=== PATIENT | female | born 1990 | race Two or more races ===

== ENCOUNTER 2024-04-10 07:25 | Day surgery (SDC) | payer MEDICAID, SELFPAY ==
[2024-04-06 07:39] VITALS: BMI 24.2
[2024-04-06 09:38] LABS: Basophils % (Auto) 0 % (0-2.5); Eosinophils # (Auto) 0.1 Thou/mm3 (0.0-0.5); Eosinophils % (Auto) 2 % (0-10); Hemoglobin 13.2 g/dL (12.0-16.0); Immature Granulocytes % (Auto) 0 % (0-0); Immature Granulocytes Auto 0.02 Thou/mm3 (0.00-0.00); Lymphocytes # (Auto) 2.4 Thou/mm3 (1.0-4.8); Lymphocytes % (Auto) 35 % (10-50); Mean Corpuscular Hemoglobin 30.1 pg (25.0-35.0); Mean Corpuscular Volume 91 fL (80-100); Monocytes # (Auto) 0.3 Thou/mm3 (0.0-0.8); Monocytes % (Auto) 5 % (0-12); Neutrophils # (Auto) 3.9 Thou/mm3 (1.8-7.7); Neutrophils % (Auto) 58 % (37-80); Nucleated Red Blood Cell % 0 /100 WBC (0); Platelet Count 252 Thou/mm3 (140-440); RDW Standard Deviation 41.2 fL (36.4-46.3); Red Blood Count 4.39 Miln/mm3 (4.00-5.20); White Blood Count 6.8 Thou/mm3 (3.6-11.0)
[2024-04-06 09:47] LABS: Anion Gap 7 (7-16); BUN/Creatinine Ratio 13 Ratio (12-20); Blood Urea Nitrogen 9 mg/dL (9-23); Calcium 9.7 mg/dL (8.3-10.6); Carbon Dioxide 27.7 mMol/L (20.0-31.0); Chloride 105 mMol/L (98-107); Creatinine (Component) 0.7 mg/dL (0.6-1.3); Glucose 96 mg/dL (74-106); Osmolality,Calculated 278 (275-295); Sodium 140 mMol/L (136-145); eGFR > 60 See Note
[2024-04-06 09:57] LABS: HCG,Qualitative Serum Negative
[2024-04-10] VITALS (8 sets, daily range): BP systolic 123–143; BP diastolic 73–99; PULSE 75–108; RESP 14–20; TEMP 36.1–37; O2SAT 95–100; BMI 24.0
[2024-04-10] MEDS: RINGERS LACTATED 1000 ML 1,000 ML 20 ML IV (08:25)
--- NOTE | 2024-04-10 09:57 | PD.SUROPNT ---
Date of Procedure 04/10/24 Pre Op Diagnosis Incarcerated incisional hernia Post Op Diagnosis Incarcerated incisional hernia Procedure Laparoscopic assisted repair of incarcerated incisional hernia with mesh Findings Patient was noted to have an approximately 5 cm infraumbilical incisional hernia with incarcerated small bowel Procedure Description Patient brought into the operating room in supine position. After administration of general orotracheal anesthesia, patient's abdomen prepped and draped in standard surgical manner. A Veress needle was inserted through the umbilicus and pneumoperitoneum was obtained to 15 mmHg. The Veress needle was removed. 5 mm left upper quadrant incision was made and a 5 mm trocar was placed. Laparoscopic camera was inserted, under direct visualization a laparoscopic camera a 5 mm trocar placed in left lower quadrant and additional 5 mm trocar placed in right lower quadrant. The abdomen was inspected and patient was noted to have an infraumbilical incisional hernia with small bowel within the hernia defect. The small bowel was easily reduced. The defect was approximately 5 cm in diameter. At this point approximately 4 cm incision was made over her previous infraumbilical scar and dissection was deepened into soft tissue. The hernia sac was excised from surrounding tissue and the fascia was cleared. The defect was slightly to the right of the midline. A 4 x 6 inch elliptical shape proceed mesh was placed through the defect and the defect was closed with interrupted prvsnf-yq-bning sutures using 0 Ethibond. Soft tissue reapproximated with interrupted sutures using 2-0 Vicryl. The abdomen was once again insufflated. The defect was noted to be closed. The mesh was secured into anterior abdominal wall in the lower pelvis with secure strap tacking device. The mesh was covering the defect with at least 4 cm circumferential margin. Hemostasis was adequate and satisfactory. Instruments and trocars removed, pneumoperitoneum was evacuated and the incisions closed 4-0 Monocryl subcuticular fashion. Instruments, needles and sponge counts were reported to be correct ?2 patient tolerated the procedure well. Patient was extubated, breathing spontaneously and without difficulty and was transferred to postanesthesia care in stable condition. Anesthesia GETA and local Pathology / specimen Other (Hernia sac) Estimated Blood Loss 5 Condition Stable Disposition PACU Surgeon Carroll Murphy MD Surgical Staff Operation Date: 04/10/24 09:30 Case Staff Anesthesiologist: Rob Mustafa RNmilitary professional: Di Enriquez
--- NOTE | 2024-04-10 10:08 | SUR.PHASEI ---
1008 Patient arrived to recovery resting comfortably in [facility], on oxygen 6L via oxy mask with an oral airway in place, breathing unlabored, vital signs stable, dressing intact to abdomen; sutures, dermabond, gauze, medipore tape, no bleeding noted, lung sounds clear upon auscultation, bilateral radial pulses present when palpated, report receive from Dr. Mustafa and Lico MARKS
--- NOTE | 2024-04-10 11:17 | SUR.PHASEII ---
1117 Patient meets discharge criteria from recovery, awake and alert, breathing unlabored, vital signs stable, denies pain, dressing intact; no bleeding noted, patient drinking 7up, tolerating well, denies nausea, patient assisted with dressing into her clothing by her , discharge instructions given with the assistance of the telephone clamp forklift operator Niltion ID#[id number] to patient and patients , signed discharge instructions. Patient given all her belongings prior to discharge, transported via wheelchair and left in a private vehicle.
== END 2024-04-10 11:17 | disposition home or self-care (01) ==
PROVIDERS: PCP Family Medicine; Referring Provider Surgery; Visit Provider Surgery
PROC: 0WQF4ZZ Repair Abdominal Wall, Percutaneous Endoscopic Approach (ICD-10-PCS; CPT 49594; principal; 2024-04-10 09:30)
DX: K43.0 Incisional hernia with obstruction, without gangrene (principal)
CPT/HCPCS: 49594; 36415; 80048; 84703; 85025; A4217; A4649; C1781; J0131; J0690; J1100; J2704; J2710; J2765; J3010; J3490; J7120; A9270; J1596